=== PATIENT | male | born 1955 | race Caucasian/White ===

== ENCOUNTER 2024-01-03 12:35 | Emergency (ER) | payer SELFPAY ==
[2024-01-03 12:45] VITALS: BP 97/83
[2024-01-03 12:46] VITALS: BP 97/83
[2024-01-03 13:00] VITALS: BP 112/67
[2024-01-03 13:08] LABS: % Basophils 1.2 % (0-2); % Eosinophils 9.5 % (0-6); % Immature Granulocytes 0.2 % (0-0.5); % Lymphocytes 20.8 % (20.5-51.1); % Monocytes 11.7 % (1.7-9.3); % Neutrophils 56.6 % (42.2-75.2); Absolute Basophils 0.1 10^3/uL (0-0.2); Absolute Eosinophils 0.5 10^3/uL (0-0.7); Absolute Monocytes 0.6 10^3/uL (0.1-0.6); Absolute Neutrophils 2.8 10^3/uL (1.4-6.5); Hematocrit 36.7 % (39.0-52.0); Hemoglobin 12.7 g/dL (13.0-18.0); Mean Corp Hgb Conc. 34.6 g/dL (33.0-37.0); Mean Corpuscular Hgb 30.2 pg (27.0-31.0); Mean Corpuscular Volume 87.2 fL (80.0-94.0); Mean Platelet Volume 11.4 fL (7.4-10.4); Nucleated Red Blood Cells % 0 % (-); Platelet Count 144 10^3/uL (130-400); Red Blood Cell Count 4.21 10^6/uL (4.70-6.10); Red Cell Dist. Width 12.4 % (11.5-14.5)
[2024-01-03 13:21] LABS: Acetaminophen < 10 ug/ml (10-30); Blood Urea Nitrogen 19 mg/dl (9-20); Calcium 9.5 mg/dl (8.4-10.2); Carbon Dioxide 26 mmol/L (22-30); Chloride 102 mmol/L (98-107); Glucose 98 mg/dl (70-99); Potassium 4.2 mmol/L (3.5-5.1); Salicylate < 1.0 mg/dl (2.0-20.0); Sodium 140 mmol/L (135-145); eGFR > 60.00
[2024-01-03 13:22] LABS: Alcohol None Detected
--- NOTE | 2024-01-03 13:32 | ED.GENMED ---
History of Present Illness
<Harshal Ponce PA-C - Last Filed: 01/03/24 17:05>
General
Chief Complaint: Suicidal Ideation
Source: patient
Time Seen by Provider: 01/03/24 12:38
History of Present Illness
History of Present Illness:
pile driving nozzleman used for interpretation, Susanne
68-year-old male presenting to the emergency department for evaluation with EMS after patient allegedly took too much hydromorphone and possibly Ativan. Patient states that he only took 1 tablet of the hydromorphone which was his mother's and he
took this because he was upset over her noting that his mother yesterday. Patient notes that his contacted EMS which is how he got to the ER in the first place. Patient notes that his whole body is hurting him and he is sad over
his mother. Patient denies any history of suicidal ideations. He has no other concerns at this time.
Past History
<Harshal Ponce PA-C - Last Filed: 01/03/24 17:05>
Past History
ED Past Medical History: None
ED Past Surgical History: None
Social History
Tobacco: Non-smoker
Alcohol: None
Drug: None
Personal:
Living: with family
Review of Systems
<Harshal Ponce PA-C - Last Filed: 01/03/24 17:05>
Review of Systems
All Other Systems: ROS reviewed and negative except as documented in HPI and ROS
Phy Exam
<Harshal Ponce PA-C - Last Filed: 01/03/24 17:05>
Physical Exam
Physical Exam:
GENERAL: Alert , in no apparent distress, somewhat agitated
EYE: conjunctiva clear
Head: Normocephalic atraumatic
NECK: Supple,
ENT: mmm.
LUNGS: no acute respiratory distress
NEUROLOGICAL: Alert and oriented
SKIN: Warm and dry, skin intact.
MUSCULOSKELETAL: well perfused.
PSYCH: Normal and appropriate interaction.
Scores
<Harshal Ponce PA-C - Last Filed: 01/03/24 17:05>
Heart Failure Risk
Heart Failure Risk Score: Not Applicable
Heart Score for Chest Pain Patients
STEMI patient?: Not applicable
Withdrawal Assessment of Alcohol
Withdrawal Assessment Completed?: Not applicable
Course
<Harshal Ponce PA-C - Last Filed: 01/03/24 17:05>
Orders/Labs/Results
Orders:
Orders
01/03/24 12:49
Urinalysis Reflex To Culture Urgent
Urine Drug Abuse Screen Urgent
01/03/24 12:50
Electrocardiogram (*1) Stat
Reason for Study: Other
Other Reason for Exam: overdose
Crisis Consult Urgent
Reason for Consult: possible attempted overdose
EKG- Treatment ONCE
01/03/24 12:57
Acetaminophen Urgent
Alcohol Urgent
Basic Metabolic Panel Urgent
Complete Blood Count/With Diff Urgent
Salicylate Urgent
01/03/24 13:47
1:1 Observation - Suicide/ Violent Behavior As Directed
01/03/24 14:02
Olanzapine [Zyprexa] 10 mg IM NOW STA
01/03/24 14:17
Sterile Water [Sterile Water For Injection] 2.1 ml IM NOW STA
01/03/24 16:35
Lorazepam [Ativan] 2 mg .ROUTE .STK-MED ONE
01/03/24 16:46
Lorazepam [Ativan] 1 mg IM NOW STA
01/03/24 17:02
Haloperidol Lactate [Haldol] 5 mg IM NOW STA
Lorazepam [Ativan] 2 mg IM NOW STA
Restraints - Violent As Directed
Restraint Type-: Locked-4 point/4 rails
Apply From (date): 01/03/24
Apply from (time): 17:03
Remove (date): 01/03/24
Remove (time): 21:03
01/03/24 17:03
1:1 Observation - Suicide/ Violent Behavior As Directed
01/03/24 17:32
CT Head W/o Iv Contrast Urgent
Comment:
Reason For Exam: agitation
Abnormal Lab Results
01/03/24
12:57
RBC 4.21 L 10^6/uL
(4.70-6.10)
Hgb 12.7 L g/dL
(13.0-18.0)
Hct 36.7 L %
(39.0-52.0)
MPV 11.4 H fL
(7.4-10.4)
Absolute Lymphs (auto) 1.0 L 10^3/uL
(1.2-3.4)
Monocytes % 11.7 H %
(1.7-9.3)
Eosinophils % 9.5 H %
(0-6)
Salicylates < 1.0 L mg/dl
(2.0-20.0)
Acetaminophen < 10 L ug/ml
(10-30)
01/03/24 12:57
01/03/24 12:57
Vital Signs
Initial and Last Documented VS:
Initial Vital Signs
Pulse Resp
103 14
01/03/24 12:39 01/03/24 12:39
Last Documented Vital Signs
Temp Pulse Resp BP Pulse Ox
98 F 82 14 105/66 98
01/03/24 19:49 01/03/24 19:49 01/03/24 19:49 01/03/24 19:49 01/03/24 19:49
<Bladimir P. DiEnna, DO - Last Filed: 01/03/24 17:24>
Orders/Labs/Results
Orders:
Orders
01/03/24 12:49
Urinalysis Reflex To Culture Urgent
Urine Drug Abuse Screen Urgent
01/03/24 12:50
Electrocardiogram (*1) Stat
Reason for Study: Other
Other Reason for Exam: overdose
Crisis Consult Urgent
Reason for Consult: possible attempted overdose
EKG- Treatment ONCE
01/03/24 12:57
Acetaminophen Urgent
Alcohol Urgent
Basic Metabolic Panel Urgent
Complete Blood Count/With Diff Urgent
Salicylate Urgent
01/03/24 13:47
1:1 Observation - Suicide/ Violent Behavior As Directed
01/03/24 14:02
Olanzapine [Zyprexa] 10 mg IM NOW STA
01/03/24 14:17
Sterile Water [Sterile Water For Injection] 2.1 ml IM NOW STA
01/03/24 16:35
Lorazepam [Ativan] 2 mg .ROUTE .STK-MED ONE
01/03/24 16:46
Lorazepam [Ativan] 1 mg IM NOW STA
01/03/24 17:02
Haloperidol Lactate [Haldol] 5 mg IM NOW STA
Lorazepam [Ativan] 2 mg IM NOW STA
Restraints - Violent As Directed
Restraint Type-: Locked-4 point/4 rails
Apply From (date): 01/03/24
Apply from (time): 17:03
Remove (date): 01/03/24
Remove (time): 21:03
01/03/24 17:03
1:1 Observation - Suicide/ Violent Behavior As Directed
01/03/24 17:32
CT Head W/o Iv Contrast Urgent
Comment:
Reason For Exam: agitation
Abnormal Lab Results
01/03/24
12:57
RBC 4.21 L 10^6/uL
(4.70-6.10)
Hgb 12.7 L g/dL
(13.0-18.0)
Hct 36.7 L %
(39.0-52.0)
MPV 11.4 H fL
(7.4-10.4)
Absolute Lymphs (auto) 1.0 L 10^3/uL
(1.2-3.4)
Monocytes % 11.7 H %
(1.7-9.3)
Eosinophils % 9.5 H %
(0-6)
Salicylates < 1.0 L mg/dl
(2.0-20.0)
Acetaminophen < 10 L ug/ml
(10-30)
01/03/24 12:57
01/03/24 12:57
Vital Signs
Initial and Last Documented VS:
Initial Vital Signs
Pulse Resp
103 14
01/03/24 12:39 01/03/24 12:39
Last Documented Vital Signs
Temp Pulse Resp BP Pulse Ox
98 F 82 14 105/66 98
01/03/24 19:49 01/03/24 19:49 01/03/24 19:49 01/03/24 19:49 01/03/24 19:49
<Anahi Molina, DO - Last Filed: 01/03/24 20:29>
Orders/Labs/Results
Orders:
Orders
01/03/24 12:49
Urinalysis Reflex To Culture Urgent
Urine Drug Abuse Screen Urgent
01/03/24 12:50
Electrocardiogram (*1) Stat
Reason for Study: Other
Other Reason for Exam: overdose
Crisis Consult Urgent
Reason for Consult: possible attempted overdose
EKG- Treatment ONCE
01/03/24 12:57
Acetaminophen Urgent
Alcohol Urgent
Basic Metabolic Panel Urgent
Complete Blood Count/With Diff Urgent
Salicylate Urgent
01/03/24 13:47
1:1 Observation - Suicide/ Violent Behavior As Directed
01/03/24 14:02
Olanzapine [Zyprexa] 10 mg IM NOW STA
01/03/24 14:17
Sterile Water [Sterile Water For Injection] 2.1 ml IM NOW STA
01/03/24 16:35
Lorazepam [Ativan] 2 mg .ROUTE .STK-MED ONE
01/03/24 16:46
Lorazepam [Ativan] 1 mg IM NOW STA
01/03/24 17:02
Haloperidol Lactate [Haldol] 5 mg IM NOW STA
Lorazepam [Ativan] 2 mg IM NOW STA
Restraints - Violent As Directed
Restraint Type-: Locked-4 point/4 rails
Apply From (date): 01/03/24
Apply from (time): 17:03
Remove (date): 01/03/24
Remove (time): 21:03
01/03/24 17:03
1:1 Observation - Suicide/ Violent Behavior As Directed
01/03/24 17:32
CT Head W/o Iv Contrast Urgent
Comment:
Reason For Exam: agitation
Abnormal Lab Results
01/03/24
12:57
RBC 4.21 L 10^6/uL
(4.70-6.10)
Hgb 12.7 L g/dL
(13.0-18.0)
Hct 36.7 L %
(39.0-52.0)
MPV 11.4 H fL
(7.4-10.4)
Absolute Lymphs (auto) 1.0 L 10^3/uL
(1.2-3.4)
Monocytes % 11.7 H %
(1.7-9.3)
Eosinophils % 9.5 H %
(0-6)
Salicylates < 1.0 L mg/dl
(2.0-20.0)
Acetaminophen < 10 L ug/ml
(10-30)
01/03/24 12:57
01/03/24 12:57
Vital Signs
Initial and Last Documented VS:
Initial Vital Signs
Pulse Resp
103 14
01/03/24 12:39 01/03/24 12:39
Last Documented Vital Signs
Temp Pulse Resp BP Pulse Ox
98 F 82 14 105/66 98
01/03/24 19:49 01/03/24 19:49 01/03/24 19:49 01/03/24 19:49 01/03/24 19:49
<Harshal Ponce PA-C - Last Filed: 01/03/24 17:05>
MDM/Problems Addressed
Differential Diagnosis Includes:
Possible suicidal ideation, medication abuse, no current signs of respiratory suppression
MDM/Problems Addressed:
68-year-old male presenting to the ER with possible overdose. Patient is adamant that he did not take anything and states he only took 1 tablet of the hydromorphone. Patient does seem to have slight lack of insight and is clearly very upset over
the passing of his mother. No family currently present or able to speak with. is also reportedly deaf so unable to speak via telephone. Will order screening labs for toxicology workup. Patient to be placed on a one-to-one. Attempting to
get in contact with family. Will also notify crisis team as well as psychiatry.
<Harshal Ponce PA-C - Last Filed: 01/03/24 17:05>
*Pulse Oximetry
Patient hypoxic: no
<Bladimir Mullins DO - Last Filed: 01/03/24 17:24>
*Critical Care Note
Total Time (30-74mins, 75-104mins- exclusive of procedures): 40 minutes
<Harshal Ponce PA-C - Last Filed: 01/03/24 17:05>
Patient Management
Discussion with other providers: Sanitary Napkin Machine Tender
Escalation/DeEscalation of care consider admission/obs:
1:40 PM - I was able to speak via text message to patient's niece who is also deaf. She states that patient's mother this past early in the morning and that patient was holding her as she and that patient has been
distraught since. They believe patient may have been taking his mother's morphine. They felt patient was staggering and very sleepy which is why they were concerned for possible OD and called 911.
1:52 PM -EMS was contacted back for further report and they state that this was a very ongoing issue between the patient and and that they were apparently arguing all morning. took the morphine and dumped it down the sink. EMS notes that
it was a very difficult situation to sort out.
1:58 PM - Per police, they spoke with the and the was not concerned that patient was suicidal but that he was taking the morphine to console himself which was not appropriate. We are still attempting to have the come to the emergency
department to get further clarification and history.
2:03 PM -patient becoming more agitated and constantly asking for . Attempting to get up and out of bed and remove IV. 10 mg of Zyprexa ordered. Attempting to redirect. We removed the patient's IV in hopes that this would make him less
agitated. Will hold on Zyprexa as patient was able to be redirected but will have low threshold to order this if agitation use.
2:32 PM-patient continuously trying to get up and out of bed. Will give Zyprexa to keep patient safe as well as staff safety.
3:18 PM -family now at bedside. Crisis staff notified as well as psychiatry. Disposition pending
3:45 PM - proceeding with filing a 302. crisis and psych aware
4:48 PM - Patient continously agitated, trying to break out of room, unable to redirect. 1mg Ativan IM ordered
5:02 OM - Patient continues to escalate, hitting staff. 5mg haldol and additional 2mg ativan as well as restraints ordered.
<Anahi Molina DO - Last Filed: 01/03/24 20:29>
Update Note
Update Note:
ATTENDING SIGN OUT NOTE
18:00 -assuming care of patient, 68-year-old male, deaf, presenting after concern for depression and threats of overdose. Patient had allegedly been taking his mother's morphine. Patient reluctantly lost his mother, has been under a lot of stress.
has filed a 302. Pending psychiatric consultation
20:00 - Psych has upheld 302. Will continue to monitor until placement
ED Attending Note
<Harshal Ponce PA-C - Last Filed: 01/03/24 17:05>
-
Portions of this chart may have been created with voice recognition software.� Occasional wrong word or��sound alike� substitutions may have occurred due to the inherent limitations of voice recognition software.
<Bladimir Mullins DO - Last Filed: 01/03/24 17:24>
ED Attending Note
Patient seen and examined by attending physician: Yes
I performed the substantive portion of visit, reviewed & personally made and approve the management plan that is documented in note by myself or UMA.: Yes
ED Attending Note:
Challenging case of a 68-year-old deaf male who presents after was concerned that the patient was trying to overdose at home. The patient denies it currently. I do sense a mild confusion. Patient to be seen by an psychiatry. For now we will
hold. Patient is adamant about leaving. Needed to be chemically and physically restrained
Discharge Plan
Departure
Referrals:
UNKNOWN - PT NOT,INTERVIEWE [Family Provider] -
Interventions
Interventions:
*Risk Screen - Suicide Last Done: 01/03/24 13:16
*General Assessment Last Done: 01/03/24 12:54
*Neglect/Abuse Screening Last Done: 01/03/24 13:16
*ED COVID-19 Vaccine History Last Done: 01/03/24 12:54
ED-Psychological Assessment Last Done: 01/03/24 13:17
Discharge Date and Time
Print Language: OMANI
--- NOTE | 2024-01-03 13:42 | CS.PSYCHR ---
Consult Summary - Psychiatry
-
Psychiatry consult for possible suicide attempt. 68 yo deaf male brought to ER today by EMS after called reporting that his mom yesterday and she believes he took a bottle of his mom's hydromorphone. Video coater slate is present for
evaluation. Patient appears puzzled when asking if he took pills and denies it. He denies suicidal ideations. He repeatedly asks where his is and when she is coming. He confirms his mom's passing yesterday. He denies a mental health history. He
denies medical problems. He does not answer when asked about D&A history.
ER was able to text patient's niece who is also deaf and states patient's mom in his arms and she and his are concerned that he overdosed intentionally. She states she will get his to the hospital to help with collateral and plan for
care.
No prior records on chart.
MSE- poor eye contact. deaf but able to communicate with coater slate but poor historian. he denies SI or taking OD. He denies HI. Poor I/J. oriented to self. initially unable to give year (answers 19...) knows the month and that [employer] is running for
office
Past psych- denies
D&A- doesn't answer
Family history- doesn't answer
Social- lives with , has a niece. both are also deaf
A/P- 68 yo male with possible OD on hydromorphone following mother's yesterday. Patient is denying this and a poor historian. Cannot make clinical decision on next step of care before the /niece come in to provide collateral information.
floorworker distributor aware and also completing assessment at this time. Case discussed with ER and crisis.
[2024-01-03 14:00] VITALS: BP 104/54
[2024-01-03] MEDS: ZYPREXA 10 MG IM (14:32)
[2024-01-03] MEDS: STERILE WATER FOR INJECTION 2.1 ML IM (14:33)
[2024-01-03] MEDS: ATIVAN 1 MG IM (16:47)
[2024-01-03] MEDS: ATIVAN 2 MG IM (17:15)
[2024-01-03] MEDS: HALDOL 5 MG IM (17:15)
[2024-01-03 19:49] VITALS: BP 105/66
[2024-01-04] MEDS: HALDOL 5 MG IM (02:32)
[2024-01-04] MEDS: ATIVAN 2 MG IM ×2 (02:50→03:59)
--- NOTE | 2024-01-04 02:58 | ED.CRISIS ---
ED Crisis Note
ED Crisis Note
Subjective:
68-year-old male here under 302 protection for suicidal ideation. Was called into the room because patient was getting very agitated. He stated that he was not staying and wanted to go home. Language [employer] sign language
apron man was contacted to aid in translation. Patient states he understood that he had a stay against his will but he did not wish to honor that request and wished to leave. He got into an altercation with security and nursing. We were able to
calm him down. We gave him Haldol and Ativan. We gave him a sandwich and warm blankets. Patient requested his cell phone but according to staff, the cell phone is not in our possession and is likely with his . Patient understood and agreed
to cooperate.
Objective:
68-year-old male who is deaf but able to communicate using [employer] [place] electrical designer drafter. Initially agitated but after medications seemed to calm down. He did have a small abrasion or skin tear to his right forearm.
Patient did admit several times that 'he wanted to '. Patient was eventually cooperative.
Assessment/Plan:
68-year-old male, deaf, weak and oriented x 3. No respiratory distress. Lungs are clear to auscultation bilaterally. Abdomen is soft nontender. Small skin tear to the right dorsal distal forearm. Dressed with a Band-Aid.
Plan is to continue to monitor him under 302 protection. Will continue to look for placement.
--- NOTE | 2024-01-04 04:49 | ED.CRISIS ---
ED Crisis Note
ED Crisis Note
Subjective:
Patient got up and started screaming. He was mouthing that he wanted to go home. Language line solutions machinery engineer to determine the patient did not want to be here and wished to be discharged. He then shot his eyes and
stated he was not going to talk to us any longer.
Objective:
Awake alert and oriented x 3, minimal acute distress. Very aggressive towards staff.
Patient received a dose of Ativan.
Assessment/Plan:
68-year-old male, deaf, weak and oriented x 3. No respiratory distress. Lungs are clear to auscultation bilaterally. Abdomen is soft nontender. Small skin tear to the right dorsal distal forearm. Dressed with a Band-Aid.
Plan is to continue to monitor him under 302 protection. Will continue to look for placement.
--- NOTE | 2024-01-04 07:36 | EDRN ---
Restraints removed and patient ambulated to the BR with RN assistance. Pt cooperative with this RN and patient was following commands by lip reading. Pt assisted back to bed by this RN. Lights dimmed.
[2024-01-04 12:05] VITALS: BP 113/64
--- NOTE | 2024-01-04 13:18 | EDRN ---
Pt w/ structural metal worker iPad for ASL is speaking w/ crisis at this time and requesting to speak w/ me.
--- NOTE | 2024-01-04 13:40 | W.PN.UPDATE ---
Update Note
Progress Note Update
Pt seen lying on stretcher, drowsy, socially withdrawn. Pt reluctant to interact with outsole tacker. He denies SI, is dismissive with dysphoric affect. Pt was noted to be very agitated last night/wanting to leave, had altercation with security
staff. Pt noted stating he wants to . He was given Zyprexa 10 mg, Haldol 5 mg and Ativan 1 mg yesterday pm, then Haldol 5 mg and Ativan 2 mg X 2 overnight. No EPS this morning. Pt allegedly OD'd on opioid; no UDS done.
Imp: Unspecified depression; on 302 for suspected OD, suicidal statements
Rec: continue stabilization and placement effort on 302. will continue to follow
--- NOTE | 2024-01-04 14:45 | EDRN ---
At 1330 the maintenance worker house trailer for this patient and this RN had a long conversation w/ this pt using iPad for ASL. Pt asked about having medications for withdrawal from taking morphine 8 mg for four days. Pt was informed that he had had 2 ativan
injections last night. pt asked to go home. Unable to accomodate pt as pt refused to speak w/ Dr. Chris who came in after pt was up and to BR. Pt stated he did not remember this. Pt concerned about not getting his meds though cannot remember any
meds but the morphine he had been taking for 4 days. Pt did say a physician had ordered a med (?pt spelled for communications tower climber med ? alprazolam but communications tower climber was not sure). Pt also requested to use a phone but no TTY here available and pt does not
have his cell phone. At first pt signed he had lost his cell then said it was taken away on his arrival here. Security checked for any of his belongings and found no belongings. Pt was told by maintenance worker house trailer that she would contact Dr. Chris to see
if he could revisit pt today and will call pt's spouse to see if she can come in to see pt as he cannot call her.
--- NOTE | 2024-01-04 14:55 | EDRN ---
chemical plant worker called pt's spouse and spouse will come in and hopefully bring in his phone, also pt is on suboxin 8-2 TID, and sister is watching his pets. She says she went back in and explained this to him. Pt requested warm blankets which were
brought to him and also requested paper scrubs.
[2024-01-04 19:27] VITALS: BP 129/94
[2024-01-04] MEDS: SUBUTEX 2 MG SL (19:48)
[2024-01-05] MEDS: SUBUTEX 2 MG SL (08:11)
[2024-01-05 08:14] VITALS: BP 120/77
--- NOTE | 2024-01-05 09:25 | ED.CRISIS ---
ED Crisis Note
ED Crisis Note
Subjective:
Patient here on a 302 after intentional overdose. He is awake and alert, no events overnight.
Objective:
Awake and alert not in distress. Resting comfortably.
Assessment/Plan:
Patient remains on 302 after intentional overdose. Well-appearing no distress. Requesting his home dose of buprenorphine last night and this was ordered. Apparently possible placement at [facility] today. Psychiatry following. Continue to
monitor.
--- NOTE | 2024-01-05 15:08 | W.PN.UPDATE ---
Update Note
Progress Note Update
Pt seen with , utilizing deaf/design teacher service. Pt alert, calm, cooperative, with full and appropriate affect, no agitation, no signs of psychosis. Pt consistently denying any suicidal ideation, wants to get home to his family
and service dog. Pt states he was 'hit hard' by his mother's passing last week, took some of her left over morphine impulsively, states he doesn't recall his behavior afterward. Pt is in Suboxone treatment, gets some counseling there. He would be
willing to see an outpatient therapist, but has to get his insurance re-activated. Pt and want him to be able to attend his mother's this week.
Imp: Impulsive OD of opioid/drug relapse, in setting of ongoing treatment for opioid dependence. Risk for self-harm appears low
Bereavement
Rec: Pt appears psychiatrically stable, can be released from the 302, to follow up with outpatient therapy and existing Suboxone treatment
[2024-01-05 15:25] VITALS: BP 120/73
== END 2024-01-05 15:37 ==
LOC: EMR 12:35
PROVIDERS: Physician Assistant Medical; EMERGENCY PHYSICIAN Student in an Organized Health Care Education/Training Program
DX: T40.2X2A Poisoning by other opioids, intentional self-harm, initial encounter (principal); T14.91XA Suicide attempt, initial encounter; R45.1 Restlessness and agitation; R53.1 Weakness; Z63.4 Disappearance and death of family member; F32.A Depression, unspecified; F43.25 Adjustment disorder with mixed disturbance of emotions and conduct; H91.90 Unspecified hearing loss, unspecified ear
CPT/HCPCS: 99285; 96372 ×8; 70450; 80048; 80143; 80179; 82077; 85025; 93005; J2358